=== PATIENT | female | born 1950 | race Caucasian/White ===

== ENCOUNTER 2017-02-05 15:16 | Emergency (ER) | payer MEDICARE ==
[2017-02-05 15:52] VITALS: BP 138/82
--- NOTE | 2017-02-05 16:50 | UC ---
FLU HPI - HPI Summary HPI Summary: LAST NIGHT SUDDEN ONSET OF CHILLS, HEADACHE, BODYACHES, SORE THROAT, COUGH. - History of Current Complaint Hx Obtained From: Patient Hx Last Menstrual Period: n/a Onset/Duration: Sudden Onset, Lasting Days Severity Currently: Moderate Severity Initially: Moderate Pain Intensity: 7 Pain Scale Used: 0-10 Numeric Associated Signs & Symptoms: Positive: F/C, Myalgia, Cough, Sore Throat <Elio Milan - Last Filed: 02/05/17 16:47> <Kyung Crowder - Last Filed: 02/05/17 17:29> - History of Current Complaint Chief Complaint: UCRespiratory Stated Complaint: COUGH,CHILLS Time Seen by Provider: 02/05/17 15:48 - Allergy/Home Medications Allergies/Adverse Reactions: Allergies Allergy/AdvReac Type Severity Reaction Status Date / Time Penicillins Allergy Severe Anaphylatic Verified 02/05/17 15:44 Shock PMH/Surg Hx/FS Hx/Imm Hx Previously Healthy: Yes - Surgical History Surgical History: Yes Surgery Procedure, Year, and Place: Tonsillectomy, 1954. Hysterectomy, 1984. LAZOR SPINE SURGERY X 4 - Family History Known Family History: Positive: Hypertension Negative: Respiratory Disease - Social History Occupation: Employed Full-time Lives: With Family Alcohol Use: Rare Alcohol Amount: 1 week Substance Use Type: None Smoking Status (MU): Never Smoked Tobacco - Immunization History Most Recent Influenza Vaccination: NOV 2015 <Elio Milan - Last Filed: 02/05/17 16:47> Review of Systems Constitutional: Chills Skin: Negative Eyes: Negative ENT: Sinus Congestion, Sinus Pain/Tenderness Respiratory: Cough Cardiovascular: Negative Gastrointestinal: Negative Genitourinary: Negative Motor: Negative Neurovascular: Negative Musculoskeletal: Myalgia Neurological: Headache Psychological: Negative Is Patient Immunocompromised?: No All Other Systems Reviewed And Are Negative: Yes <Elio Milan - Last Filed: 02/05/17 16:47> Physical Exam Triage Information Reviewed: Yes Appearance: No Pain Distress, Well-Nourished, Ill-Appearing Vital Signs: Initial Vital Signs Temp 98.8 F 02/05/17 15:45 Pulse 88 02/05/17 15:45 Resp 16 02/05/17 15:45 BP 138/82 02/05/17 15:45 Pulse Ox 97 02/05/17 15:45 Vital Signs Reviewed: Yes Eye Exam: Normal ENT Exam: Normal ENT: Positive: Normal ENT inspection, Hearing grossly normal, Pharynx normal, TMs normal Dental Exam: Normal Neck exam: Normal Neck: Positive: Supple, Nontender, No Lymphadenopathy Respiratory Exam: Normal Respiratory: Positive: Chest non-tender, Lungs clear, Normal breath sounds, No respiratory distress, No accessory muscle use Cardiovascular Exam: Normal Cardiovascular: Positive: RRR, No Murmur, Pulses Normal Abdominal Exam: Normal Musculoskeletal Exam: Normal Neurological Exam: Normal Psychological Exam: Normal Skin Exam: Normal <Elio Milan - Last Filed: 02/05/17 16:47> Vital Signs: Initial Vital Signs Temp 98.8 F 02/05/17 15:45 Pulse 88 02/05/17 15:45 Resp 16 02/05/17 15:45 BP 138/82 02/05/17 15:45 Pulse Ox 97 02/05/17 15:45 <Kyung Crowder - Last Filed: 02/05/17 17:29> Flu Course/Dx - Differential Dx/Diagnosis Differential Diagnosis/HQI/PQRI: Influenza, Upper Respiratory Infection Provider Diagnoses: UPPER RESPIRATORY INFECTION <Elio Milan - Last Filed: 02/05/17 16:47> Discharge <Elio Milan - Last Filed: 02/05/17 16:47> <Kyung Crowder - Last Filed: 02/05/17 17:29> - Discharge Plan Condition: Stable Disposition: HOME Patient Education Materials: Upper Respiratory Infection (ED), Viral Syndrome ( ED) Forms: *Work Release Referrals: Michele De La Fuente MD [Primary Care Provider] - Attestation Statement User Type: Provider - I was available for consult. This patient was seen by the СЕРГЕЙ. The patient was not presented to, seen by, or examined by me. -Bimal <Kyung Crowder - Last Filed: 02/05/17 17:29>
== END 2017-02-05 16:42 | disposition home or self-care (01) ==
LOC: UCCORT 15:16
DX: J06.9 Acute upper respiratory infection, unspecified (principal); Z88.0 Allergy status to penicillin
CPT/HCPCS: 87502; 99211; G0463

== ENCOUNTER 2017-12-08 10:40 | Emergency (ER) | payer MEDICARE ==
[2017-12-08 11:52] VITALS: BP 146/86
--- NOTE | 2017-12-08 12:15 | UC ---
UC General HPI - HPI Summary HPI Summary: Patient presents complaining of intermittent pain in the left side of her back. she states that sometimes it radiates around under her bra strap towards the front of her chest. She notes that it occurs at random and it began yesterday. She states that IT has been getting progressively worse. She cannot identify anything that makes it feel specifically any worse and notes that movement or twisting does not increase her discomfort. She states that while getting a haircut yesterday, she had an episode of the pain. It was quite severe and she had to move around in the chair try to get comfort. She denies any associated exertional component and has had no nausea, Vomiting or diarrhea. She denies any associated injury, fever, shortness of breath or diaphoresis. There is no associated numbness tingling or weakness to the arms or legs. Patient denies having any discomfort at time of my exam. Patient offers that she did have a colonoscopy last week and wants to ensure that that is not a factor. She has also has a runny nose and only mentions that to make sure not related. - History of Current Complaint Chief Complaint: UCBackPain Stated Complaint: BACK/LEFT SIDE RIB PAIN Time Seen by Provider: 12/08/17 12:05 Hx Obtained From: Patient Hx Last Menstrual Period: n/a Pain Intensity: 6 Alleviating: maybe tyelnol - Allergy/Home Medications Allergies/Adverse Reactions: Allergies Allergy/AdvReac Type Severity Reaction Status Date / Time Penicillins Allergy Itching Verified 12/08/17 11:48 and Swelling Sulfa (Sulfonamide Allergy Itching Verified 12/08/17 11:48 Antibiotics) and Swelling Home Medications: Home Medications Acetaminophen [Acetaminophen Extra Strength] 500 - 1,000 mg PO Q6H PRN 12/08/17 [History Confirmed 12/08/17] Cholecalciferol TAB* [Vitamin D TAB*] 5,000 unit PO DAILY 12/08/17 [History Confirmed 12/08/17] Doxylam/PE/Dm/Acetaminophen/GG [Vicks Dayquil/Nyquil Leatha] 20 ml PO Q6H PRN [History Confirmed 12/08/17] PMH/Surg Hx/FS Hx/Imm Hx Previously Healthy: Yes - Surgical History Surgical History: Yes Surgery Procedure, Year, and Place: Tonsillectomy, 1955. Hysterectomy, 1985. LAZOR SPINE SURGERY X 4 - Family History Known Family History: Positive: Hypertension Negative: Respiratory Disease - Social History Occupation: Employed Part-time Alcohol Use: Weekly Alcohol Amount: 1 week Substance Use Type: None Smoking Status (MU): Never Smoked Tobacco - Immunization History Most Recent Influenza Vaccination: NOV 2015 Vaccination Up to Date: Yes Review of Systems Constitutional: Negative Skin: Negative Eyes: Negative ENT: Negative Respiratory: Negative Cardiovascular: Negative Gastrointestinal: Negative Genitourinary: Negative Motor: Negative Neurovascular: Negative Musculoskeletal: Other: - l abck/flank pains Neurological: Negative Psychological: Negative Is Patient Immunocompromised?: No All Other Systems Reviewed And Are Negative: Yes Physical Exam Triage Information Reviewed: Yes Appearance: Well-Appearing Vital Signs: Initial Vital Signs Temp 98.2 F 12/08/17 11:43 Pulse 66 12/08/17 11:43 Resp 16 12/08/17 11:43 BP 146/86 12/08/17 11:43 Pulse Ox 99 12/08/17 11:43 Vital Signs Reviewed: Yes Eyes: Positive: Conjunctiva Clear ENT: Positive: Pharynx normal, TMs normal. Negative: Nasal congestion, Nasal drainage Neck: Positive: Supple, Nontender, No Lymphadenopathy Respiratory: Positive: Chest non-tender, Lungs clear, Normal breath sounds Cardiovascular: Positive: RRR, No Murmur, Pulses Normal Abdomen Description: Positive: Nontender, No Organomegaly, Soft. Negative: Bruit, CVA Tenderness (R), CVA Tenderness (L), Distended, Guarding, Hepatomegaly , Pulsatile Mass, Splenomegaly Bowel Sounds: Positive: Present Musculoskeletal: Positive: ROM Intact, No Edema, Other: - Back has no gross deformity, swelling, discoloration or rash and is non tender to palpation. Active rom is intact and painless. Neurological: Positive: Alert Psychological: Positive: Age Appropriate Behavior Skin Exam: Normal Skin: Negative: rashes Diagnostics - Laboratory Diagnostic Studies Completed/Ordered: u/a=no blood, protein or leukocytes - Radiology No standard instances Radiology Interpretation Completed By: Radiologist - CXR IMPRESSION: No active cardiopulmonary disease is noted. Non contrast CT abd/pelvis=IMPRESSION: No definite obstructive uropathy is noted. Multiple phleboliths are noted in the pelvis making evaluation difficult. No other masses or fluid collections are noted. - EKG Cardiac Rate: NL Cardiac Rhythm: Sinus: Normal Ectopy: None ST Segment: Normal Course/Dx - Course Course Of Treatment: Patient is nontoxic. EKG is unremarkable and history makes ACS unlikely. Chest x-ray showed no cardiomegaly, infiltrate, PTX and I saw no evidence of free air under the diaphragm given her recent colonoscopy. CT of the abdomen and pelvis showed some phleboliths but no masses or fluid collections. Within the note of the CT he did note some bladder distention; however, I detect no distention on exam to suggest urinary retention. There was no uropathy on CT. Patient was having no discomfort at time of exam and I could not reproduce the pain with palpation or with active range of motion. Also, there was no rash on her trunk to suggest shingles. It is not a tearing pain and no acute abdomen to suggest AA. The pain sounds colicky in nature. It is possible that she passed a small stone at some point. Patient will be treated with a short duration of NSAIDs and close follow-up with her primary care. She's been instructed to go the emergency room immediately for any change or worsening. - Differential Dx - Multi-Symptom Provider Diagnoses: Episodic pain in L falnk/L side of back Discharge - Sign-Out/Discharge Documenting (check all that apply): Patient Departure All imaging exams completed and their final reports reviewed: Yes - Discharge Plan Condition: Stable Disposition: HOME Prescriptions: Naproxen [Naprosyn 500 mg tab] 500 mg PO BID 6 Days #6 tablet Patient Education Materials: Flank Pain (ED), Back Pain (ED) Referrals: Michele De La Fuente MD [Primary Care Provider] - 2 Days Additional Instructions: GO TO THE ER IMMEDIATELY FOR ANY CHANGES OR WORSENING. - Billing Disposition and Condition Condition: STABLE Disposition: Home
--- NOTE | 2017-12-08 12:39 | RAD ---
Indication: Left back pain, chest pain. 2 views of the chest including dual energy PA view demonstrates no mediastinal shift. Heart is of normal size and configuration. Hodges are clear. IMPRESSION: No active cardiopulmonary disease is noted.
--- NOTE | 2017-12-08 13:35 | RAD ---
Indication: Left flank pain. CT of the abdomen and pelvis was performed without oral or IV contrast administration. Coronal and sagittal reconstructed images were obtained. Lung bases demonstrate no pleural fluid, nodules or masses. Heart is normal size without evidence of pericardial effusion. Liver is normal in size. No focal lesions or intrahepatic ductal dilatation is noted. The gallbladder demonstrates no calcified gallstones. No pericholecystic fluid or wall thickening is noted. The pancreas demonstrates no mass or pancreatic duct dilatation. The common duct is not dilated. No adrenal masses are noted. The kidneys demonstrate no hydronephrosis or hydroureter in either kidney. No focal masses in either kidney is noted. Atherosclerotic aorta is noted. No evidence of retroperitoneal adenopathy is noted. CT of the pelvis demonstrates urinary bladder to be distended. Multiple phleboliths are seen in the pelvis. There are diverticulosis without definite evidence of diverticulitis. No hernia is identified. The patient appears to be status post hysterectomy. Multilevel degenerative disc disease of lumbar spine noted. There may be some grade 1 spondylolisthesis of L4 on 5. IMPRESSION: No definite obstructive uropathy is noted. Multiple phleboliths are noted in the pelvis making evaluation difficult. No other masses or fluid collections are noted.
== END 2017-12-08 14:11 | disposition home or self-care (01) ==
LOC: UCCORT 10:40
DX: R10.9 Unspecified abdominal pain (principal); M54.9 Dorsalgia, unspecified; Z88.0 Allergy status to penicillin; Z88.1 Allergy status to other antibiotic agents
CPT/HCPCS: 71046; 74176; 81003; 93005; 99212; G0463

== ENCOUNTER 2018-12-07 15:33 | Emergency (ER) | payer MEDICARE ==
--- OUTSIDE RECORDS SUMMARY | 2018-12-07 16:03 | XMS REPORT | Continuity of Care Document ---
:1950 External Reference #:[id number] Author Name Lori Castillo NP (transmitted by agent of provider Ethel Queen) Address [address] [place] [address] Care Team Providers Name Role Phone [facility] Lab Care Team Information Corporate Quality Manager [phone] Soila Castellon - Gastroenterology Care Team Information Corporate Quality Manager Problems Active Problems Provider Date Gastroesophageal reflux disease Tony Polk DO Onset: 01/06/2010 Elevated levels of transaminase & lactic Tony Polk DO Onset: 2009 acid dehydrogenase Vitamin D deficiency Tony Polk DO Onset: 01/06/2010 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 Mixed hyperlipidemia Tony Polk DO Onset: 09/08/2005 Pure hypercholesterolemia Tony Polk DO Onset: 07/08/2014 Obstructive sleep apnea syndrome Michele De La Fuente MD Onset: 06/12/2017 Diverticular disease of colon Michele De La Fuente MD Onset: 01/02/2017 Impaired fasting glycaemia Michele De La Fuente MD Onset: 11/09/2015 Social History Type Date Description Comments Sex Unknown Tobacco Use Start: Unknown Never Smoked Cigarettes ETOH Use Occasionally consumes alcohol Tobacco Use Start: Unknown End: Unknown Patient is a former smoker Smoking Status Reviewed: 12/25/17 Patient is a former smoker Allergies, Adverse Reactions, Alerts Active Allergies Reaction Severity Comments Date Penicillin 07/08/2014 Sulfa Drugs Mild Lip Swelling? 02/20/2017 Medications Active Medications SIG Qnty Indications Ordering Date Provider Nitrofurantoin Monohyd 1 tab by mouth 14caps N39.0 Debbie Crowder, 2018 Macro twice a day 100mg Capsules Omeprazole take one capsule 90caps K21.9 Digiovanna, 03/25/[address] cruz Bautista MD meals if needed Vitamin D3 Maximum 1 by mouth daily E55.9 Jam, 08/24/2014 Strength with meal DO Tony 5000Unit Capsules History Medications Benzonatate 1 by mouth every 8 60caps R05 Digiovanna, 05/31/2018 - 200mg hours as needed ALANNAH Conklin 07/24/2018 Capsules for cough, may cause drowsiness Immunizations CPT Code Status Date Vaccine Reaction Lot # [id number] Given 06/12/2017 Pneumococcal 23 Immunization [id number] Adult Or Immunosuppressed Patient 18305 Given 03/29/2017 Fluzone Highdose Age 65 And Over Preservative & Antibiotic Free 70158 Given 01/25/2016 Prevnar 13 Pneumococal Conjugate Vaccine 08900 Given 12/25/2015 Influenza, Preservative Free 3 Years And Older 92500 Given 11/30/2014 Fluzone Highdose Age 65 And Given At Pharmacy Over Preservative & [id number] Antibiotic Free 99993 Given 11/26/2012 Afluria Or Fluvirin Flu Vac Intramuscular Q2039 Refused 12/25/2017 Flu Vaccine NOS WILL GET AT PHARMACY Vital Signs Date Vital Result Comment 10/25/2018 1:31pm Body Temperature 98.1 F Weight 168.00 lb Heart Rate 68 /min BP Systolic 140 mmHg BP Diastolic 70 mmHg Respiratory Rate 18 /min Height 65 inches 5'5" BMI (Body Mass Index) 28.0 kg/m2 07/24/2018 1:31pm Weight 172.00 lb Heart Rate 72 /min BP Systolic 120 mmHg BP Diastolic 80 mmHg Respiratory Rate 18 /min Height 65 inches 5'5" BMI (Body Mass Index) 28.6 kg/m2 Results Test Date Facility Test Result H/L Range Note Laboratory test 10/25/2018 [facility] Troponin I- RL <pending> finding Laboratory test 10/25/2018 [facility] Urine Culture <pending> finding Lipid Treatment 07/10/2018 [facility] Cholesterol 253 mg/dL High 50-199 1 Triglycerides 120 mg/dL 30-200 HDL 71 mg/dL 35-85 2 Chol/ HDL Ratio 3.6 ratio Low 3.7-5.6 VLDL 24 mg/dL 2-29 LDL (Calc) 159 mg/dL High 20-99 3 Alt 14 U/L 3-42 Ast 15 U/L 8-42 Basic (BMP) 07/10/2018 [facility] Sodium 139 mmol/L 135-146 4 Potassium 4.3 mmol/L 3.5-5.2 Chloride# 103 mmol/L 97-110 5 Carbon Dioxide 26 mmol/L 24-34 Glucose 116 mg/dL High 70-105 BUN 21 mg/dL 6-26 Creatinine 1.0 mg/dL 0.5-1.4 Calcium 9.8 mg/dL 8.5-10.5 6 Female Egfr 57 Low >60 7 Male Egfr 75 >60 8 Anion Gap 10 mmol/L 5-15 9 CBC with Auto Diff-fcmg 07/10/2018 [facility] WBC 5.7 K/uL 4.1-11.0 RBC 4.14 M/uL 4.00-5.40 Hemoglobin 13.9 gm/dL 12.0-16.0 Hematocrit 40.9 % 36.0-47.0 MCV 98.7 fL High 80.0-97.0 MCH 33.5 pg High 27.0-32.0 MCHC 33.9 g/dL 32.0-36.0 RDW 13.1 % 11.5-14.5 PLT Count 196 K/ul 140-400 MPV 10.4 FL 7.1-10.7 Neutrophil 57.8 % 35.0-75.0 Lymphocyte 29.6 % 16.0-52.0 Monocyte 8.4 % 2.0-10.0 Eosinophil 3.0 % 0.0-5.0 Basophil 1.2 % 0.0-4.0 Abs Neutrophils 3.3 K/uL 2.1-8.0 Abs Lymphocytes 1.7 K/uL 0.8-5.5 Abs Monocytes 0.5 K/uL 0.1-1.0 Abs Eosinophils 0.2 K/uL 0.0-0.5 Abs Basophils 0.1 K/uL 0.0-0.3 Laboratory test finding 07/10/2018 [facility] Vitamin D 25 Hydroxy 43 ng/mL 30-100 10 1 06/14 preOV 2 Per NCEP ATP III Guidelines: Results lower than 40 mg/dL are suggestive of increased risk for coronary artery disease. Results > or = to 60 mg/dL are considered a negative risk factor. 3 Per NCEP ATP III Guidelines: Normal Population <130 Patients with medical conditions: CHD/DM Optimal: <100 Borderline high: 130-159 High: 160-189 Very high: >189 4 Updated reference range on new analyzer 5 Updated reference range on new analyzer 6 Updated reference range 06-26-2018 7 Concerning GFR Guidelines for Americans: Normal function or mild renal disease, if clinically at risk: >/= 60 mL/min Moderately decreased: 30-59 Severely decreased: 15-29 Renal failure: <15 There is reduced accuracy above 60ml/min/1.73 m squared, but the numeric value may be clinically useful in the near 60 range 8 Concerning GFR Guidelines: Normal function or mild renal disease, if clinically at risk: >/= 60 mL/min Moderately decreased: 30-59 Severely decreased: 15-29 Renal failure: <15 There is reduced accuracy above 60ml/min/1.73 m squared, but the numeric value may be clinically useful in the near 60 range Glomerular Filtration Rate (GFR) is estimated based on the CKD-EPI equation, which assumes a steady state for creatinine as recommended by the National Kidney Disease Education Program in conjunction with the National Institutes of Health and the National Kidney Foundation. Clinical conditions in which it may be necessary to measure GFR by using clearance methods include extremes of age and body size, severe malnutrition or obesity, diseases of skeletal muscle, paraplegia or quadriplegia, vegetarian diet, rapidly changing kidney function, and calculation of the dose of potentially toxic drugs that are excreted by the kidneys. 9 Updated Reference Range 10 Clinical Guidelines for recommended serum 25(OH)Vitamin D Deficient at less than 20 ng/mL Insufficient at 20 to <30 ng/mL Sufficient at 30-100 ng/mL Toxicity at greater than 100 ng/mL Procedures Date Code Description Status 10/25/2018 76146 Electrocardiogram Complete Completed 10/16/2018 16493861 Mammogram Completed 11/30/2017 59085365 Colonoscopy Completed Medical Devices Description No Information Available Encounters Type Date Location Provider Dx Diagnosis Office Visit 07/24/2018 [facility] Michele De La Fuente, E78.2 Mixed hyperlipidemia 2:00p R73.01 Impaired fasting glucose E55.9 Vitamin D deficiency, unspecified K21.9 Gastro-esophageal reflux disease without esophagitis K57.30 Dvrtclos of lg int w/o perforation or abscess w/o bleeding M25.569 Pain in unspecified knee Z13.31 Encounter for screening for depression Z68.28 Body mass index (BMI) 28.0-28.9, adult Office Visit 05/31/2018 9:30a [facility] Katerin De La Fuente NP R05 Cough Assessments Date Code Description Provider 10/25/2018 N39.0 Urinary tract infection, site not Lori Castillo NP specified 10/25/2018 R07.9 Chest pain, unspecified Lori Castillo NP 10/25/2018 R07.9 Chest pain, unspecified Schedule, Laboratory 07/24/2018 E78.2 Mixed hyperlipidemia Michele De La Fuente MD 07/24/2018 R73.01 Impaired fasting glucose Michele De La Fuente MD 07/24/2018 E55.9 Vitamin D deficiency, unspecified Michele De La Fuente MD 07/24/2018 K21.9 Gastro-esophageal reflux disease without Michele De La Fuente MD esophagitis 07/24/2018 K57.30 Diverticulosis of large intestine without Mcihele De La Fuente MD perforation or abs 07/24/2018 M25.569 Knee pain Michele De La Fuente MD 07/24/2018 Z13.31 Encounter for screening for depression Michele De La Fuente MD 07/24/2018 Z68.28 Body mass index (BMI) 28.0-28.9, adult Michele De La Fuente MD 07/10/2018 E78.2 Mixed hyperlipidemia Michele De La Fuente MD 07/10/2018 E78.2 Mixed hyperlipidemia Schedule, Laboratory 07/10/2018 R73.01 Impaired fasting glucose Michele De La Fuente MD 07/10/2018 R73.01 Impaired fasting glucose Schedule, Laboratory 07/10/2018 G47.33 Obstructive sleep apnea (adult) Michele De La Fuente MD (pediatric) 07/10/2018 G47.33 Obstructive sleep apnea (adult) Schedule, Laboratory (pediatric) 07/10/2018 E55.9 Vitamin D deficiency, unspecified Michele De La Fuente MD 07/10/2018 E55.9 Vitamin D deficiency, unspecified Schedule, Laboratory 07/10/2018 E78.2 Mixed hyperlipidemia [facility] 07/10/2018 G47.33 [facility] 07/10/2018 E55.9 Vitamin D deficiency, unspecified [facility] 05/31/2018 R05 Cough Katerin De La Fuente NP Plan of Treatment Future Appointment(s):01/08/2019 8:55 am - Schedule, Laboratory at [facility]2018 3:00 pm - Michele De [facility] Fu[facility] at [facility]10/25/2018 - Lori Castillo NPN39.0 Urinary tract infection, site not specifiedNew Medication: Nitrofurantoin Monohyd Macro 100 mg - 1 tab by mouth twice a dayR07.9 Chest pain , unspecifiedComments:EKG today NSRLabs todayTo ER for sustained CP or CP with associated shortness of breath, diaphoresisor any exertional CP. Functional Status Description No Information Available Mental Status Description No Information Available Referrals Description No Information Available
--- OUTSIDE RECORDS SUMMARY | 2018-12-07 16:03 | XMS REPORT | Continuity of Care Document ---
:1950 External Reference #:[id number] Author Name Lori Castillo NP Address [address] [place] [address] Care Team Providers Name Role Phone [facility] Care Team Information Income Tax Auditor [phone] Soila Castellon - Gastroenterology Care Team Information Income Tax Auditor Problems Active Problems Provider Date Gastroesophageal reflux [...] 1 tab by mouth 14caps N39.0 Debbie Crowder 2018 Macro twice a day 100mg Capsules [...] Code Status Date Vaccine Reaction Lot # [id number] Given 06/12/2017 Pneumococcal 23 Immunization [id number] Adult Or Immunosuppressed Patient 07344 Given 03/29/2017 Fluzone Highdose Age 65 And Over Preservative & Antibiotic Free 50226 Given 01/25/2016 Prevnar 13 Pneumococal Conjugate Vaccine 88687 Given 12/25/2015 Influenza, Preservative Free 3 Years And Older 12183 Given 11/30/2014 Fluzone Highdose Age 65 And Given At Pharmacy Over Preservative & SAUCEDO/281 Antibiotic Free 91558 Given 11/26/2012 Afluria Or Fluvirin Flu Vac [...] Ast 15 U/L 8-42 Basic (BMP) 07/10/2018 [facility] Sodium 139 mmol/L 135-146 4 Potassium 4.3 [...] ng/mL Procedures Date Code Description Status 10/25/2018 89201 Electrocardiogram Complete Completed 10/16/2018 [id number] Mammogram Completed 11/30/2017 04730000 Colonoscopy Completed Medical Devices Description No Information Available Encounters Type Date Location Provider Dx Diagnosis Office Visit 07/24/2018 Michele Myers, E78.2 Mixed hyperlipidemia 2:00p R73.01 Impaired fasting [...] 07/24/2018 K57.30 Diverticulosis of large intestine without Michele De La Fuente MD perforation or abs [...] unspecified Schedule, Laboratory 07/10/2018 E78.2 Mixed hyperlipidemia [facility] 07/10/2018 G47.33 Obstructive sleep apnea (adult) [facility] (pediatric) 07/10/2018 E55.9 Vitamin D deficiency, unspecified [facility] 05/31/2018 R05 Cough Katerin De La Fuente NP Plan of Treatment Future Appointment(s):01/08/2019 8:55 am - Schedule, Laboratory at [facility]2018 3:00 pm - Michele De La Fuente MD at [facility]10/25/2018 - Lori Castillo NPN39.0 Urinary tract infection, site not specifiedNew Medication: Nitrofurantoin Monohyd Macro 100 mg - 1 tab by mouth twice a dayComments:Start ABX nowUrine culture with change in abx if eqmfaaspjS10.9 Chest pain, unspecifiedComments:Exam is not consistent with cardiovascular, or respiratory origin. Unable to reproduce during exam. EKG today NSR. Reviewed by Dr. Robin Discussed case with today with tx and follow-up if indicated. To ER for sustained CP or CP with associated shortness of breath, diaphoresis or any exertional CP. Functional Status Description No Information Available Mental Status Description No Information Available Referrals Description No Information Available
[2018-12-07 16:14] VITALS: BP 160/89
--- NOTE | 2018-12-07 16:19 | UC ---
Throat Pain/Nasal Will HPI - HPI Summary HPI Summary: 68-year-old female who has had cold symptoms with head congestion runny nose and harsh cough over the past 2-3 days and today she has a sore throat. No known exposure to strep however she does have someone at work who has had cold symptoms. - History of Current Complaint Chief Complaint: UCGeneralIllness Stated Complaint: SORE THROAT/COUGH Time Seen by Provider: 12/07/18 16:10 Hx Obtained From: Patient Hx Last Menstrual Period: n/a ?: No Onset/Duration: Gradual Onset Severity: Mild Pain Intensity: 2 Cough: Productive - Occasional productive cough of clear sputum. Associated Signs & Symptoms: Positive: Nasal Discharge - Allergies/Home Medications Allergies/Adverse Reactions: Allergies Allergy/AdvReac Type Severity Reaction Status Date / Time Penicillins Allergy Itching Verified 12/07/18 16:05 and Swelling Sulfa (Sulfonamide Allergy Itching Verified 12/07/18 16:05 Antibiotics) and Swelling Home Medications: Home Medications Benzonatate 200 mg PO TID PRN 12/07/18 [History Confirmed 12/07/18] Dm/PE/Acetaminophen/Doxylamine [Claudine-Redding Plus Day-Night Cp] 2 each PO BID PRN 12/07/18 [History Confirmed 12/07/18] PMH/Surg Hx/FS Hx/Imm Hx Previously Healthy: Yes - Surgical History Surgical History: Yes Surgery Procedure, Year, and Place: Tonsillectomy, 1954. Hysterectomy, 1984. LAZOR SPINE SURGERY X 4 - Family History Known Family History: Positive: Hypertension Negative: Respiratory Disease - Social History Alcohol Use: Weekly Alcohol Amount: 1 week Substance Use Type: None Smoking Status (MU): Never Smoked Tobacco - Immunization History Most Recent Influenza Vaccination: NOV 2015 Vaccination Up to Date: Yes Review of Systems All Other Systems Reviewed And Are Negative: Yes ENT: Positive: Sore Throat, Nasal Discharge, Sinus Congestion Respiratory: Positive: Cough - Harsh occasionally productive cough of clear sputum. Is Patient Immunocompromised?: No Physical Exam Triage Information Reviewed: Yes Appearance: Well-Appearing, No Pain Distress, Well-Nourished Vital Signs: Initial Vital Signs Temp 98.5 F 12/07/18 16:10 Pulse 77 12/07/18 16:10 Resp 16 12/07/18 16:10 BP 160/89 12/07/18 16:10 Pulse Ox 98 10/12/19 16:10 Vital Signs Reviewed: Yes Eyes: Positive: Conjunctiva Clear ENT: Positive: Hearing grossly normal, Pharynx normal, Nasal congestion, Nasal drainage - Clear nasal coryza, TMs normal, Uvula midline Neck: Positive: Supple, Nontender, No Lymphadenopathy Respiratory: Positive: Lungs clear, Normal breath sounds, No respiratory distress, No accessory muscle use Cardiovascular: Positive: RRR, No Murmur, Pulses Normal, Brisk Capillary Refill Musculoskeletal Exam: Normal Neurological Exam: Normal Psychological Exam: Normal Skin Exam: Normal Throat Pain/Nasal Course/Dx - Course Course Of Treatment: Rapid strep test was negative. The patient can do ayor-spx-uhtednk cold medicines, increase fluids and follow-up with her primary care provider in 4 or 5 days if no improvement or she starts running a fever. - Differential Dx/Diagnosis Provider Diagnosis: URI (upper respiratory infection) Discharge ED - Sign-Out/Discharge Documenting (check all that apply): Patient Departure All imaging exams completed and their final reports reviewed: No Studies - Discharge Plan Condition: Good Disposition: HOME Patient Education Materials: Upper Respiratory Infection (DC) Referrals: Michele De La Fuente MD [Primary Care Provider] - Additional Instructions: Increase fluids, warm saltwater gargles, throat lozenges. Definite follow-up with your primary care provider if no improvement in 4 or 5 days or if you start running a fever. - Billing Disposition and Condition Condition: GOOD Disposition: Home
== END 2018-12-07 16:55 | disposition home or self-care (01) ==
LOC: UCCORT 15:33
DX: J06.9 Acute upper respiratory infection, unspecified (principal); Z88.0 Allergy status to penicillin; Z88.2 Allergy status to sulfonamides
CPT/HCPCS: 87651; 99211; G0463

== ENCOUNTER 2019-02-22 08:39 | Emergency (ER) | payer MEDICARE ==
--- OUTSIDE RECORDS SUMMARY | 2019-02-22 08:46 | XMS REPORT | Continuity of Care Document ---
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 02/20/2017 Medications Active Medications SIG Qnty Indications Ordering Provider Date Doxycycline Hyclate 1 cap by mouth 20caps J01.90 Debbie Crowder 2018 twice a day for MD 100mg Capsules 10 days Benzonatate 1 by mouth three 21caps R05 Debbie Crowder, 12/25/2018 100mg times a day as Capsules needed for cough Omeprazole take one capsule 90caps K21.9 Digiovanna, 03/25/2015 20mg before large MD Michele Capsules DR meals if needed Vitamin D3 Maximum 1 by mouth daily E55.9 Tony Polk, 08/24/2014 Strength with meal DO 5000Unit Capsules History Medications Nitrofurantoin Monohyd 1 tab by mouth 14caps N39.0 Debbie Crowder, 2018 - Macro twice a day 11/01/2018 100mg Capsules Immunizations CPT Code Status Date Vaccine Reaction Lot # 97912 Given 06/12/2017 Pneumococcal 23 Immunization [id number] Adult Or Immunosuppressed Patient 58630 Given 03/29/2017 Fluzone Highdose Age 65 And Over Preservative & Antibiotic Free 24885 Given 01/25/2016 Prevnar 13 Pneumococal Conjugate Vaccine 40584 Given 12/25/2015 Influenza, Preservative Free 3 Years And Older 47413 Given 11/30/2014 Fluzone Highdose Age 65 And Given At Pharmacy Over Preservative & SAUCEDO/281 Antibiotic Free 57288 Given 11/26/2012 Afluria Or Fluvirin Flu Vac Intramuscular Q2039 Refused 12/25/2017 Flu Vaccine NOS WILL GET AT PHARMACY Vital Signs Date Vital Result Comment 12/25/2018 11:41am Body Temperature 98.2 F Weight 159.00 lb Heart Rate 70 /min BP Systolic 132 mmHg BP Diastolic 70 mmHg Respiratory Rate 18 /min Height 65 inches 5'5" O2 % BldC Oximetry 97 % BMI (Body Mass Index) 26.5 kg/m2 10/25/2018 1:31pm Body Temperature 98.1 F Weight 168.00 lb Heart Rate 68 /min BP Systolic 140 mmHg BP Diastolic 70 mmHg Respiratory Rate 18 /min Height 65 inches 5'5" BMI (Body Mass Index) 28.0 kg/m2 Results Test Acquired Date Facility Test Result H/L Range Note CBC with Auto Diff-[facility] 10/25/2018 [facility] WBC 6.6 K/uL 4.1-11.0 RBC 4.07 M/uL 4.00-5.40 Hemoglobin 13.6 gm/dL 12.0-16.0 Hematocrit 39.9 % 36.0-47.0 MCV 98.0 fL High 80.0-97.0 MCH 33.4 pg High 27.0-32.0 MCHC 34.1 g/dL 32.0-36.0 RDW 12.9 % 11.5-14.5 PLT Count 184 K/ul 140-400 MPV 10.0 FL 7.1-10.7 Neutrophil 59.5 % 35.0-75.0 Lymphocyte 29.1 % 16.0-52.0 Monocyte 8.0 % 2.0-10.0 Eosinophil 2.2 % 0.0-5.0 Basophil 1.2 % 0.0-4.0 Abs Neutrophils 3.9 K/uL 2.1-8.0 Abs Lymphocytes 1.9 K/uL 0.8-5.5 Abs Monocytes 0.5 K/uL 0.1-1.0 Abs Eosinophils 0.1 K/uL 0.0-0.5 Abs Basophils 0.1 K/uL 0.0-0.3 Comprehensive Met Panel-[facility] 10/25/2018 [facility] Sodium 139 mmol/L 135- 146 1 Potassium 4.3 mmol/L 3.5-5.2 Chloride# 103 mmol/L 97-110 2 Carbon Dioxide 27 mmol/L 24-34 Calcium 9.8 mg/dL 8.5-10.5 3 Glucose 100 mg/dL 70-105 BUN 14 mg/dL 6-26 Creatinine 0.9 mg/dL 0.5-1.4 Total Protein 6.9 g/dL 6.0-8.0 Albumin 4.4 g/dL 3.6-4.9 Globulin 2.5 g/dL 2.0-3.5 A/G Ratio 1.8 Ratio 1.0-2.2 Total Bilirubin 0.8 mg/dL 0.1-1.3 Alkaline Phosphatase 66 U/L 24-140 Alt 17 U/L 3-42 Ast 15 U/L 8-42 Anion Gap 9 mmol/L 5-15 4 Female Egfr 66 >60 5 Male Egfr 87 >60 6 Laboratory test 10/25/2018 [facility] Troponin I <0.05 ng/mL (<0.05) 7 finding Laboratory test 10/25/2018 [facility] Urine Culture Microbiology res Abnormal 8 finding <SEE NOTE> Lipid Treatment 07/10/2018 [facility] Cholesterol 253 mg/dL High 50-199 9 Triglycerides 120 mg/dL 30-200 HDL 71 mg/dL 35-85 10 Chol/ HDL Ratio 3.6 ratio Low 3.7-5.6 VLDL 24 mg/dL 2-29 LDL (Calc) 159 mg/dL High 20-99 11 Alt 14 U/L 3-42 Ast 15 U/L 8-42 Basic (BMP) 07/10/2018 [facility] Sodium 139 mmol/L 135-146 12 Potassium 4.3 mmol/L 3.5-5.2 Chloride# 103 mmol/L 97-110 13 Carbon Dioxide 26 mmol/L 24-34 Glucose 116 mg/dL High 70-105 BUN 21 mg/dL 6-26 Creatinine 1.0 mg/dL 0.5-1.4 Calcium 9.8 mg/dL 8.5-10.5 14 Female Egfr 57 Low >60 15 Male Egfr 75 >60 16 Anion Gap 10 mmol/L 5-15 17 CBC with Auto Diff-[facility] 07/10/2018 [facility] WBC [...] Vitamin D 25 Hydroxy 43 ng/mL 30-100 18 1 Updated reference range on new analyzer 2 Updated reference range on new analyzer 3 Updated reference range 06-26-2018 4 Updated Reference Range 5 Concerning GFR Guidelines for Americans: Normal function or mild renal disease, if clinically at risk: >/= 60 mL/min Moderately decreased: 30-59 Severely decreased: 15-29 Renal failure: <15 There is reduced accuracy above 60ml/min/1.73 m squared, but the numeric value may be clinically useful in the near 60 range 6 Concerning GFR Guidelines: Normal function or mild [...] drugs that are excreted by the kidneys. 7 Less than 0.05: Myocardial injury unlikely Greater than or equal to 0.05: Highly suggestive of myocardial injury Correlation with rise and/or fall of serial troponins, clinical symptoms and ECG changes is necessary. New reference range in effect 18. Unless otherwise specified, testing performed by [facility] [address] [place] [id number] Microbiology results SOURCE Clean Catch Midstream COLONY COUNT >100,000 CFU/ML PRELIMINARY RESULT Gram Negative Jl. ID & Sensitivity to Follow. 10/26/2018 8:53 PM FINAL RESULT Escherichia coli (Isolate 1) Sensitivity Analysis Isolate 1 --------- AMIKACIN <=16 S AMOXICILLIN/CLAVULANATE <=8/4 S AMPICILLIN >16 R AMPICILLIN/SULBACTAM <=8/4 S CEFAZOLIN <=2 S CEFEPIME <=8 S CEFOTAXIME <=2 S CEFTRIAXONE <=1 S CEFUROXIME <=4 S CIPROFLOXACIN <=1 S ERTAPENEM <=0.5 S GENTAMYCIN 4 S IMIPENEM <=1 S LEVOFLOXACIN <=2 S NITROFURANTOIN <=32 S PIPERACILLIN/TAZOBACTAM <=16 S TETRACYCLINE <=4 S TOBRAMYCIN <=4 S TRIMETHOPRIM/SULFAMETHOXAZ <=2/38 S S=Sensitive;I=Indeterminate;R=Resistant 9 06/14 preOV 10 Per NCEP ATP III Guidelines: Results lower than 40 mg/dL are suggestive of increased risk for coronary artery disease. Results > or = to 60 mg/dL are considered a negative risk factor. 11 Per NCEP ATP III Guidelines: Normal Population <130 Patients with medical conditions: CHD/DM Optimal: <100 Borderline high: 130-159 High: 160-189 Very high: >189 12 Updated reference range on new analyzer 13 Updated reference range on new analyzer 14 Updated reference range 06-26-2018 15 Concerning GFR Guidelines for Americans: Normal function or mild renal disease, if clinically at risk: >/= 60 mL/min Moderately decreased: 30-59 Severely decreased: 15-29 Renal failure: <15 There is reduced accuracy above 60ml/min/1.73 m squared, but the numeric value may be clinically useful in the near 60 range 16 Concerning GFR Guidelines: Normal function or mild [...] drugs that are excreted by the kidneys. 17 Updated Reference Range 18 Clinical Guidelines for recommended serum 25(OH)Vitamin D Deficient at less than 20 ng/mL Insufficient at 20 to <30 ng/mL Sufficient at 30-100 ng/mL Toxicity at greater than 100 ng/mL Procedures Date Code Description Status 12/25/2018 33317 Measure Blood Oxygen Level Single Determination Completed 10/25/2018 89091 Electrocardiogram Complete Completed 10/16/2018 28848740 Mammogram Completed 11/30/2017 [id number] Colonoscopy Completed Medical Devices Description No Information Available Encounters Type Date Location Provider Dx Diagnosis Office Visit 10/25/2018 1:15p [facility] Lori Castillo NP N39.0 Urinary tract infection, site not specified R07.9 Chest pain, unspecified Office Visit 07/24/2018 2:00p [facility] Michele De La Fuente MD E78.2 Mixed hyperlipidemia R73.01 Impaired fasting glucose E55.9 Vitamin D deficiency, unspecified K21.9 Gastro-esophageal reflux disease without esophagitis K57.30 Dvrtclos of lg int w/o perforation or abscess w/o bleeding M25.569 Pain in unspecified knee Z13.31 Encounter for screening for depression Z68.28 Body mass index (BMI) 28.0-28.9, adult Assessments Date Code Description Provider 12/25/2018 J01.90 Acute sinusitis, unspecified Lori Castillo DIRECTOR DRUG 12/25/2018 R05 Cough Lori Castillo DIRECTOR DRUG 10/25/2018 R07.9 Chest pain, unspecified Lori Castillo, DIRECTOR DRUG 10/25/2018 N39.0 Urinary tract infection, site not Lori Castillo, DIRECTOR DRUG specified 10/25/2018 R07.9 Chest pain, unspecified StraLori hernandez, DIRECTOR DRUG 10/25/2018 R07.9 Chest pain, unspecified Schedule, Laboratory 10/25/2018 R07.9 Chest pain, unspecified [facility] 10/25/2018 N39.0 Urinary tract infection, site not [facility] specified 07/24/2018 E78.2 Mixed hyperlipidemia Michele De La Fuente MD 07/24/2018 R73.01 Impaired fasting glucose Michele De La Fuente MD 07/24/2018 E55.9 Vitamin D deficiency, unspecified Michele De La Fuente MD 07/24/2018 K21.9 Gastro-esophageal reflux disease without Digiovanna, Michele, MD esophagitis 07/24/2018 K57.30 Diverticulosis of large [...] unspecified Schedule, Laboratory 07/10/2018 E78.2 Mixed hyperlipidemia [facility] 07/10/2018 G47.33 Obstructive sleep apnea (adult) [facility] ([facility] 07/10/2018 E55.9 Vitamin D deficiency, unspecified [facility] Plan of Treatment Future Appointment(s):01/08/2019 8:55 am - Schedule, Laboratory at [facility]2018 3:00 pm - Michele De La Fuente [facility]12/25/2018 - Lori Castillo, NPJ01.90 Acute sinusitis, unspecifiedNew Medication:Doxycycline Hyclate 100 mg - 1 cap by mouth twice a day for 10 daysComments:-Likely bacterial infection - Start Doxycyline. Possible GI upset. Probiotics encouraged-OTC antipyretics for low grade feverSaline nasal spray-Should start to feel better in 3-4 days. Return for re-evaluation with worsening symptoms or if you develop fever greater than 101.0Follow up:As [id number] CoughNew Medication:Benzonatate 100 mg - 1 by mouth three times a day as needed for coughComments:Recommend cool mist humidification, warm/cool liquids with or without honey for comfortContinue benzonatate. Will refill nowRecommend Vicks Vapor RubAdvised cough can linger for 4 weeks after feeling better. Deep breathing to prevent pneumonia Functional Status Description No Information Available Mental Status Description No Information Available Referrals Description No Information Available
--- NOTE | 2019-02-22 09:20 | UC ---
Upper Extremity HPI - HPI Summary HPI Summary: Injured R index finger with metal filing cabinet and feels it has mostly improved aside from the swelling at the PIP. HAS some decr. rom but she is concerned that it is taking 3 wks to heal. - History of Current Complaint Chief Complaint: UCUpperExtremity Stated Complaint: RT INDEX FINGER INJURY Time Seen by Provider: 02/22/19 09:12 Hx Obtained From: Patient Hx Last Menstrual Period: n/a Pain Intensity: 5 Pain Scale Used: 0-10 Numeric Character: Dull, Aching Aggravating Factor(s): Movement Alleviating Factor(s): Nothing - Allergies/Home Medications Allergies/Adverse Reactions: Allergies Allergy/AdvReac Type Severity Reaction Status Date / Time Penicillins Allergy Itching Verified 02/22/19 08:53 and Swelling Sulfa (Sulfonamide Allergy Itching Verified 02/22/19 08:53 Antibiotics) and Swelling PMH/Surg Hx/FS Hx/Imm Hx - Additional Past Medical History Additional PMH: vit d deficiency Previously Healthy: Yes - Surgical History Surgical History: Yes Surgery Procedure, Year, and Place: Tonsillectomy, 1954. Hysterectomy, 1984. LAZOR SPINE SURGERY X 4 - Family History Known Family History: Positive: Hypertension Negative: Respiratory Disease - Social History Alcohol Use: Occasionally Alcohol Amount: 1 week Substance Use Type: None Smoking Status (MU): Never Smoked Tobacco - Immunization History Most Recent Influenza Vaccination: NOV 2015 Vaccination Up to Date: Yes Review of Systems All Other Systems Reviewed And Are Negative: Yes Constitutional: Negative: Fever Skin: Negative: Bruising Respiratory: Negative: Shortness Of Breath Musculoskeletal: Positive: Arthralgia - R index, Decreased ROM - R index, Edema - mid finger joint Neurological: Negative: Weakness, Paresthesia, Numbness Physical Exam Triage Information Reviewed: Yes Appearance: Well-Appearing Vital Signs: Initial Vital Signs Temp 97.8 F 02/22/19 08:54 Pulse 75 02/22/19 08:54 Resp 16 02/22/19 08:54 BP 151/91 02/22/19 08:54 Pulse Ox 98 02/22/19 08:54 Vital Signs Reviewed: Yes Respiratory: Positive: No respiratory distress Musculoskeletal: Positive: Strength Intact - all finger of hand, ROM Limited @ - r pip, Edema @ - r pip, Other: - R index PIP is flesh colored but significantly swollen. Neurological: Positive: Alert Skin: Negative: Other - no redness on hand. Diagnostics - Radiology No standard instances Radiology Interpretation Completed By: Radiologist Summary of Radiographic Findings: No fx, soft tissue swelling. Upper Extremity Course/Dx - Course Course Of Treatment: R index PIP swelling x3 wks after injury w/ metal filing cabinet. No fx on XRAY but on exam it is significant swollen, decr. Rom AND little tenderness. Could be an injury taking some time to heal but have advised her seeing Ortho in case an MRI is needed given her decr. ROM. No neuro deficits and no change in color of finger. vitals good. - Differential Dx/Diagnosis Differential Diagnosis/HQI/PQRI: Contusion, Strain, Sprain, Other Provider Diagnosis: Contusion, finger Discharge ED - Sign-Out/Discharge Documenting (check all that apply): Patient Departure All imaging exams completed and their final reports reviewed: Yes - Discharge Plan Condition: Good Disposition: HOME Patient Education Materials: Contusion in Adults (ED) Referrals: Gayle Elizabeth PA [Physician Motorcycle Racer] - Additional Instructions: Please call Orthopedics this week. - Billing Disposition and Condition Condition: GOOD Disposition: Home - Attestation Statements Provider Attestation: Per institutional requirements, I have reviewed the chart, however, I was not consulted specifically or made aware of this patient by the midlevel provider. I did not personally evaluate, interact with , or disposition this patient.
[2019-02-22 09:50] VITALS: BP 147/87
== END 2019-02-22 09:55 | disposition home or self-care (01) ==
LOC: UCCORT 08:39
DX: S60.021A Contusion of right index finger without damage to nail, initial encounter (principal); Z88.0 Allergy status to penicillin; Z88.2 Allergy status to sulfonamides; X58.XXXA Exposure to other specified factors, initial encounter; Y92.9 Unspecified place or not applicable
CPT/HCPCS: 73140; 99211; G0463